=== PATIENT | female | born 1980 ===

== ENCOUNTER 2019-05-21 14:33 | Emergency (ER) | payer BC ==
[2019-05-21] MEDS ORDERED: Ketorolac 30 MG/ML SDV IVPUSH ONE (14:59)
[2019-05-21] MEDS ORDERED: Sodium Chloride 0.9% 1,000 ML IV ONE (14:59)
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
[2019-05-21] MEDS ORDERED: diphenhydrAMINE 50 MG/ML SDV IVPUSH ONE (16:02)
[2019-05-21] MEDS ORDERED: LORazepam 2 MG/ML SDV IVPUSH ONE (16:02)
== END 2019-05-21 16:45 | disposition home or self-care (01) ==
LOC: MW.ED 14:33
DX: R51 Headache (principal); J45.909 Unspecified asthma, uncomplicated; Z88.1 Allergy status to other antibiotic agents; Z79.899 Other long term (current) drug therapy
CPT/HCPCS: 93005; 96374; 96375; 99283; J1200; J1885; J2060; J7040

== ENCOUNTER 2019-05-21 17:40 | Emergency (ER) | payer OTHER, BC ==
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
== END 2019-05-21 18:58 | disposition home or self-care (01) ==
LOC: MW.ED 17:40
DX: M62.838 Other muscle spasm (principal); Z91.09 Other allergy status, other than to drugs and biological substances; Z88.1 Allergy status to other antibiotic agents; Z88.8 Allergy status to other drugs, medicaments and biological substances; Z79.899 Other long term (current) drug therapy; V49.9XXA Car occupant (driver) (passenger) injured in unspecified traffic accident, initial encounter
CPT/HCPCS: 72040; 72040-26; 99284-25